=== PATIENT | male | born 1960 | race Caucasian/White ===

== ENCOUNTER 2024-05-01 07:02 | Day surgery (SDC) | payer OTHER, SELFPAY ==
[2024-05-01 07:46] VITALS: BP 144/78; PULSE 64; RESP 16; TEMP 36.6; O2SAT 97; BMI 27.0
[2024-05-01] MEDS: LACTATED RINGERS 1000ML 1,000 ML 50 ML IV (07:56)
--- NOTE | 2024-05-01 08:14 | P.PNANES_ITS ---
[facility] Disclaimer: The information contained in this section may have been updated after the patient was seen, as this information can be updated by other users. Medical History (Updated 05/01/24 @ 07:42 by Nohelia Acuna RN) Kidney stone Gout Eczema History of gastroesophageal reflux (GERD) Hyperlipidemia Hypertension Surgical History (Updated 05/01/24 @ 07:40 by Nohelia Acuna RN) S/P arthroscopy of left shoulder Family History (Updated 05/01/24 @ 07:42 by Nohelia Acuna RN) Other Family history of diabetes mellitus type II Family history of hyperlipidemia Family history of hypertension Social History (Updated 05/01/24 @ 07:42 by Nohelia Acuna RN) Smoking Status: Current every day smoker alcohol intake: current substance use type: denies use current occupational status: retired Travel in the last 8 weeks: None [facility] [place] Anesthesia Checklist Patient Identification Patient Identification: Verbal (Name & ) Structural Data Admitted From: Home Planned Operative Procedure/s: colonoscopy Consent for Planned Operative Procedure(s) Verified: Yes NPO Status Verified Time NPO: 00:00 Airway Assessment Mallampati Score:: Class II C-Spine Mobility Assessed: Yes TMJ Mobility Assessed: Yes Dentition: Good Dentition Neurological Assessment Level of Consciousness: Awake, Alert and Appropriate Anesthesia Plan Anesthesia Risk discussed: Yes Anesthesia Plan: Verified ASA Class: II Anesthesia Type: MAC
--- NOTE | 2024-05-01 08:28 | P.HP_ITS ---
History of Present Illness *Admission Date: 05/01/24 *Reason for visit:: Screening *History of present illness: Mrs. Vaz is a 63-year-old female who is here for screening colonoscopy. The examination is deemed medically necessary for screening and his last colonoscopy was in 2014. The patient has been seen, interviewed and examined prior to the procedure by both myself and the anesthesia provider. [facility] Disclaimer: The information contained in this section may have been updated after the patient was seen, as this information can be updated by other users. Medical History (Updated 05/01/24 @ 08:29 by Angel Coombs II, MD) Kidney stone Gout Eczema History of gastroesophageal reflux (GERD) Hyperlipidemia Hypertension Surgical History (Updated 05/01/24 @ 07:40 by Nohelia Acuna RN) S/P arthroscopy of left shoulder Family History (Updated 05/01/24 @ 07:42 by Nohelia Acuna RN) Other Family history of diabetes mellitus type II Family history of hyperlipidemia Family history of hypertension Social History (Updated 05/01/24 @ 08:16 by Padilla Franco CRNA) Smoking Status: Current every day smoker alcohol intake: current substance use type: denies use current occupational status: retired Travel in the last 8 weeks: None Have you lived/traveled outside [place] in past 30 days?: No Contact w/someone who lives/traveled outside US past 30 days?: No Exposure to someone with infectious disease in past 14 days?: No Do you have a fever (greater than 100.4 F or 38 C)?: No Have you tested positive for COVID-19: No Exposed to someone with COVID-19 in past 14 days?: No Do you have a sore throat?: No Do you have a cough?: No Do you have any weakness?: No Are you experiencing any nausea/vomitting?: No Do you have any diarrhea?: No Are you experiencing any unusual bleeding?: No Do you have any muscle aches/pain?: No Do you have any abdominal pain?: No Are you experiencing loss of taste or smell?: No Review of Systems Review of Systems Review of systems (narrative): Negative *Cardiovascular Comments: Negative *Gastrointestinal Comments: Negative *Genitourinary Comments: Negative *Musculoskeletal Comments: Negative *Neurologic Comments: Negative Meds Home Medications and Allergies Home Medications ?Medication ?Instructions ?Recorded ?Confirmed ?Type ilt9212 140 gram-sod sulfate 9 500 ml PO .COMPLEX colonscopy #3 ea 04/18/24 Rx gram-NaCl 5.2gram-KCl-C oral pwdr packs (Plenvu) allopurinol 100 mg tablet 100 mg PO DAILY 05/01/24 05/01/24 History amlodipine 10 mg tablet 10 mg PO DAILY 05/01/24 05/01/24 History omeprazole 20 mg capsule,delayed 20 mg PO DAILY 05/01/24 05/01/24 History release pravastatin 40 mg tablet 40 mg PO DAILY 05/01/24 05/01/24 History New Prescriptions to Start Prescriptions: Allergies Allergy/AdvReac Type Severity Reaction Status Date / Time No Known Allergies Allergy Verified 05/01/24 07:43 Exam Data for Last 24 hours Vital signs and Labs for Last 24 Hours: Temp Pulse Resp BP Pulse Ox O2 Del Method 97.8 F 64 16 144/78 H 97 Room Air 05/01/24 07:46 05/01/24 07:46 05/01/24 07:46 05/01/24 07:46 05/01/24 07:46 05/01/24 07:46 I & O for Last 24 hours: Intake & Output 04/28/24 04/29/24 04/30/24 05/01/24 23:59 23:59 23:59 23:59 Weight 205 lb *Routine HEENT Exam Head: Present normocephalic Eye: Present EOMI and PERRL ENT: Present mucous membranes moist *Routine Neck Exam Neck: Present supple *Routine Respiratory Exam Respiratory: Present CTA bilaterally *Routine Cardiovascular Exam Cardiovascular: Present RRR *Routine Abdominal Exam Abdominal: Present soft and normoactive bowel sounds; Absent tenderness *Routine Rectal Exam Rectal:: deferred *Routine Genitalia Exam Genitalia:: deferred *Routine Extremities Exam Extremities: Absent cyanosis, clubbing or edema *Routine Skin Exam Skin: Present warm; Absent rash *Routine Neurological Exam Neurological: Present alert and oriented X3 Assessment and Plan *Assessment and plan (1) Screening for colon cancer: Status: Acute Category: Medical Code(s): Z12.11 - Encounter for screening for malignant neoplasm of colon Plan A/P: 1. Screening for colon cancer is the preprocedural diagnosis. The patient will be anesthetized/sedated using MAC sedation. The patient has been seen and examined. Cardiac and lung assessment prior to the examination is stable. Proceed with planned screening colonoscopy
[2024-05-01 08:32] VITALS: O2SAT 97
--- NOTE | 2024-05-01 08:40 | HMH.PROCNOTE ---
[facility] Procedure Note Date: 05/01/24 Time: 08:58 Procedure Note:: Colonoscopy Procedure Report: Colonoscopy with cold snare polypectomy and cold biopsies Endoscopist: Angel Coombs II, MD Referring physician: Yessy Pennington MD, [address] [facility] [address], [place] [address] Date of Procedure: May 01, 2024 Equipment: Olympus 190 variable stiffness pediatric colonoscope Sedation: MAC sedation Indication: Mr. Vaz is a 63-year-old gentleman who is here for 10-year interval screening colonoscopy. The patient's last colonoscopy in 2014 was normal (Raquel Mcdaniel MD). He reports no abdominal pain, weight loss, change in his bowel habits or rectal bleeding. He reports no family history of colon cancer. The patient is also performing colonoscopy for preoperative screening assessment for donor kidney transplant program. Procedure: Prior to the procedure, a history and physical exam was performed, and patient's medications and allergies were reviewed. The risks, benefits and alternatives of the sedation and procedure were discussed with the patient. All questions were answered and informed consent was obtained. The patient was brought to the procedure room. Patient identification and proposed procedure were verified by the physician and the nurse. The patient was placed in a left lateral decubitus position and the scope was passed under direct vision. Throughout the procedure, the patient's blood pressure, pulse, and oxygen saturations were monitored continuously. The colonoscopy was accomplished without difficulty. The patient tolerated the procedure well. Findings: On digital rectal examination there was normal rectal tone. There were no external hemorrhoids. The prostate was 3+ (mildly enlarged), smooth, soft, symmetric without nodules. The colonoscope was introduced through the anal canal to the rectum and advanced to the cecum. The ileocecal valve and appendiceal orifice were identified. The scope was advanced a short distance into the ileum which appeared grossly normal. There was a single aphthous erosion of the ileum that was biopsied. The scope was then withdrawn into the colon. There were 2 polyps (transverse x 1 (8 mm) and sigmoid x 1 (4 mm)). These were both removed via cold snare polypectomy. The remaining cecum, ascending and transverse colon and mucosa were grossly normal. There were mildly scattered diverticuli throughout the descending and sigmoid colon (LEFT colon). The rectum itself was normal. Upon retroflexion within the rectum there were grade 2 internal hemorrhoids. The preparation was excellent throughout with [place] Preparation Score of 9. The cecal time was 14 minutes. Impression: 1. Colonic polyps x 2 (4 and 8 mm) 2. Mild left-sided diverticulosis 3. Grade 2 internal hemorrhoids Plan: I will follow-up the polyp histology and recommend repeat surveillance colonoscopy again in 5 to 10 years based upon the pathology. I would encourage psyllium bulking fiber supplementation on a long-term daily maintenance basis.
[2024-05-01 09:02] VITALS: BP 101/64; PULSE 73; RESP 16; TEMP 36.4; O2SAT 95
[2024-05-01 09:12] VITALS: BP 95/70; PULSE 74; RESP 16; O2SAT 94
[2024-05-01 09:22] VITALS: BP 112/72; PULSE 69; RESP 16; O2SAT 95
[2024-05-01 09:32] VITALS: BP 114/67; PULSE 75; RESP 18; O2SAT 97
== END 2024-05-01 09:43 | disposition home or self-care (01) ==
PROVIDERS: PCP Family Medicine; Visit Provider Internal Medicine Gastroenterology
PROC: 0DJD8ZZ Inspection of Lower Intestinal Tract, Via Natural or Artificial Opening Endoscopic (ICD-10-PCS; CPT 45378; principal; 2024-05-01 08:30)
DX: K63.5 Polyp of colon (principal); K57.30 Diverticulosis of large intestine without perforation or abscess without bleeding; K64.1 Second degree hemorrhoids; Z12.11 Encounter for screening for malignant neoplasm of colon
CPT/HCPCS: 45380; 45385; 88305; J7120